=== PATIENT | male | born 1995 | race Caucasian/White ===

== ENCOUNTER 2020-05-16 16:36 | Emergency (ER) | payer MEDICAID, OTHER ==
[~2020-05-16] VITALS: Ht 175.3 cm; Wt 91.0 kg
[2020-05-16] MEDS ORDERED: SODIUM CHLORIDE 0.9% 1,000 ML IV ONE (16:52)
[2020-05-16] MEDS ORDERED: ONDANSETRON HCL 4MG/2ML INJ IV STA (16:52)
[2020-05-16 17:28] LABS: BASOPHILS % 0.5 % (0.0-2.0); EOSINOPHILS % 1.6 % (0.0-5.0); HEMATOCRIT. 41.8 % (42.0-52.0); HEMOGLOBIN. 14.2 g/dL (14.0-18.0); MEAN CORPUSCULAR VOLUME 82.1 fL (80.0-94.0); MEAN PLATELET VOLUME 8.9 fl (7.4-10.4); MONOCYTES % 8.8 % (2.0-8.0); NEUTROPHILS % 65.1 % (40.0-76.0); PLATELET 211 x1000/uL (130-400); RED BLOOD CELL COUNT 5.08 mill/uL (4.7-6.1)
[2020-05-16 17:33] LABS: CHLORIDE 112 mEq/L (98-107)
[2020-05-16 17:38] LABS: ETHANOL BLOOD < 10 mg/dL
[2020-05-16 18:22] VITALS: BP 136/87
== END 2020-05-16 18:27 | disposition home or self-care (01) ==
LOC: ER 16:36
DX: U07.1 COVID-19 (principal); R00.2 Palpitations; R00.0 Tachycardia, unspecified
CPT/HCPCS: 36415; 80053; 80320; 85025; 93005; 99283; J7030; G0480

== ENCOUNTER 2025-07-10 18:40 | Emergency (ER) | payer MEDICAID, OTHER ==
[~2025-07-10] VITALS: Ht 180.3 cm; Wt 94.0 kg
[2025-07-10 18:41] VITALS: O2SAT 97
[2025-07-10] MEDS: LABETALOL 5MG/ML 4ML INJ IV ONE (19:03)
[2025-07-10 19:17] LABS: BASOPHILS % 0.6 % (0.0-2.0); EOSINOPHILS % 3.4 % (0.0-5.0); HEMATOCRIT. 38.1 % (42.0-52.0); HEMOGLOBIN. 12.9 g/dL (14.0-18.0); LYMPHOCYTES % 36.5 % (20.0-50.0); MEAN PLATELET VOLUME 8.6 fl (7.4-10.4); MONOCYTES % 6.1 % (2.0-8.0); NEUTROPHILS % 53.4 % (40.0-76.0); PLATELET 216 x1000/uL (130-400); RED BLOOD CELL COUNT 4.66 mill/uL (4.7-6.1); RED CELL DISTRIBUTION WIDTH 13.2 % (11.6-14.6)
[2025-07-10 19:27] LABS: INR 0.9
[2025-07-10 19:32] LABS: CREATININE 1.2 mg/dL (0.6-1.3); UREA NITROGEN BLOOD 16 mg/dL (9-23)
[2025-07-10 19:33] LABS: TROPONIN I HIGH SENSITIVITY 14 ng/L (3.0-53)
[2025-07-10 19:34] LABS: ASPARTATE AMINOTRANSFERASE 53 IU/L (<34); BILIRUBIN DIRECT < 0.1 mg/dL (<=3.0); BILIRUBIN TOTAL 0.4 mg/dL (0.1-1.0); PROTEIN TOTAL 6.7 g/dL (6.0-8.3)
[2025-07-10 21:35] LABS: TROPONIN I HIGH SENSITIVITY 14 ng/L (3.0-53)
[2025-07-10 22:16] VITALS: BP 147/95; PULSE 76; RESP 13; TEMP 37.2; O2SAT 98
== END 2025-07-10 22:21 | disposition home or self-care (01) ==
LOC: ER 18:40 → CMPBEDREQ 07-11 07:20
DX: R07.89 Other chest pain (principal); I10 Essential (primary) hypertension; R06.02 Shortness of breath
CPT/HCPCS: 80076; 80048; 80320; 83880; 83690; 83735; 85025; 85610; 85730; 84484; 36415; 71045; 93005; 96374; 99285; J3490; Z7610; A4606; G0480